=== PATIENT | male | born 1985 | race Caucasian/White ===

== ENCOUNTER → 2020-02-12 08:07 | Outpatient (BNVA) | payer SELFPAY | PROVIDERS: PCP Internal Medicine; Referring Provider Dermatology; Visit Provider Dermatology | DX: D48.5 Neoplasm of uncertain behavior of skin (principal); L72.0 Epidermal cyst; D22.9 Melanocytic nevi, unspecified | CPT/HCPCS: 99203; 99204 ==

== ENCOUNTER 2023-09-13 06:00 | Outpatient (RCR) | payer BC, SELFPAY | END 2023-09-26 23:59 | disposition home or self-care (01) | LOC: GPT 06:00 | PROVIDERS: Visit Provider Family Medicine | DX: M25.511 Pain in right shoulder (principal) | CPT/HCPCS: 97162 ==